=== PATIENT | female | born 1990 | race Caucasian/White ===

== ENCOUNTER 2019-08-15 01:16 | Inpatient (IN) ==
[2019-08-15] MEDS ORDERED: OXYTOCIN 30 UNITS/500 ML BAG IV PRN (01:35)
[2019-08-15] MEDS ORDERED: PENICILLIN G POTASSIUM 3 MU in DEXTROSE 5% 100 ML IV PRN (01:35)
[2019-08-15] MEDS ORDERED: LACTATED RINGER'S 1,000 ML IV PRN (01:35)
[2019-08-15] MEDS ORDERED: PENICILLIN G POTASSIUM 6 MU in DEXTROSE 5% 250 ML IV STA (01:35)
[2019-08-15] MEDS ORDERED: fentaNYL citrate 100 MCG/2 ML VIAL ONE (01:48)
[2019-08-15] MEDS ORDERED: ePHEDrine sulfate 50 MG/ML AMP ONE (01:48)
[2019-08-15] MEDS ORDERED: BUPIVACAINE 0.25% 30 ML VIAL ONE (01:48)
[2019-08-15] MEDS ORDERED: fentaNYL 2MCG/ML ROPIV 1.25MG/ML 100 ML BAG EPI ONE (01:49)
[2019-08-15 01:51] LABS: Hematocrit (blood only) 34.2 % (37-47); Hemoglobin 11.6 g/dL (12.0-16.0); Mean Corpuscular Volume 87.9 fL (80-100); Mean Platelet Volume 10.5 fL (7.4-10.4); Platelet Count 251 K/uL (130-400); RDW Coefficient of Variation 13.2 % (11.5-14.5); RDW Standard Deviation 42.1 fL (36.4-46.3); Red Blood Count 3.89 M/uL (4.2-5.4); White Blood Count 18.21 K/uL (4.8-10.8)
[2019-08-15 01:55] LABS: Mean Corpuscular Hgb Conc 33.9 g/dL (32-36)
--- NOTE | 2019-08-15 02:02 | Labor Progress Brief Note ---
Date of Service August 15, 2019 Subjective Patient breathing through contractions. Requesting epidural. PN record reviewed, GBS pos noted. Assessment & Plan (1) Carrier of group B Streptococcus: Laboring and already advanced. GBS pos, will start abx but not likely to reach adequate treatment before delivery. Epidural requested from [facility], Plts normal. Present on Admission?: Yes Physical Exam Physical Exam: In moderate distress. Abd: gravid, ctx palp strong Cvx: deferred; accept RN exam of 9/100/0 and tense bulging bag, as patient wants epidural and I'm concerned that accidentally breaking the bag will cause her to miss that opportunity. Results & Data Vital Signs (Past 12 Hours) Vital Signs Temp Pulse Resp BP 08/15/19 01:36 98.2 F 77 20 140/85 08/15/19 01:31 77 140/85
--- NOTE | 2019-08-15 02:48 | Anesthesiology Consultation ---
Date of Service August 15, 2019 38.2 Assessment & Plan (1) Encounter for pre-operative examination: Chart Review Chart Review: Patient NOT seen in Pre Admission Testing and Acceptable Risk for Labor Epidural Consults Requested none ASA ASA2 Proposed Anesthesia Anesthesia Type: CSE Risk / Benefits Reviewed With: PT / POA / Parent / Guardian, Accepts Plan and Informed Consent Obtained History Height/Weight Height: 5 ft 3 in Weight: 81.647 kg Allergies Allergy/AdvReac Type Severity Reaction Status Date / Time No Known Drug Allergies Allergy Verified 08/11/19 11:54 Medications Home Medications Medication Instructions Recorded Confirmed Last Taken albuterol sulfate HFA 90 2 puff INHALATION DIRECTED gm 06/30/19 08/15/19 Unknown mcg/actuation aerosol inhaler 21-iron fu-folic acid 1 tab PO DAILY 06/30/19 08/15/19 08/14/19 Active Medications Generic Name Dose Route Start Last Admin Trade Name Freq PRN Reason Stop Dose Admin Lactated Ringer's 1,000 mls @ 125 mls/hr 08/15/19 01:35 08/15/19 01:48 Lr IV 08/17/19 01:34 999 mls/hr .Q8H PRN Administration L&D Protocol Protocol NPO Date Last Intake of Fluids: 08/14/19 Time Last Intake of Fluids: 22:00 Date Last Intake of Solids: 08/14/19 Time Last Intake of Solids: 22:00 Past Medical History Medical History History of asthma History of ovarian cyst History of varicella vaccination Pelvic pain Exercise / Class Metabolic Activity II 4-5 Yardwork/Stairs/Walk up hill Past Family History Family History Mother Fibroid Endometriosis Grandmother (Paternal) Stroke Grandmother (Maternal) Abdominal aortic aneurysm (AAA) Past Surgical History Surgical History S/P LASIK surgery S/P wisdom tooth extraction Past Anesthesia History No Hx of Anesthesia Complications and No Family Hx of Anesthesia Complications History of PONV No Hx of PONV and No Hx of Motion Sickness Social History Smoking Status: Never smoker Hx Alcohol Use: No Hx Substance Use: No Physical Exam Vital Signs Last Vital Signs Temp 36.8 C 08/15/19 01:36 Pulse 75 08/15/19 02:39 Resp 20 08/15/19 01:36 BP 123/71 08/15/19 02:39 Pulse Ox 97 08/15/19 02:39 ENMT Mouth: no dentition abnormality Thyromental Distance: > or= 3.5 Finger Breadths Mallampati Class: II Neck normal visual inspection Respiratory normal respiratory effort Auscultation: lungs clear to auscultation bilaterally Cardiovascular Rate/Rhythm: regular rate and regular rhythm Psychiatric Orientation: alert Testing Laboratory Results 08/15/19 01:42
[2019-08-15] MEDS ORDERED: fentaNYL 2MCG/ML ROPIV 1.25MG/ML 100 ML BAG EPI PRN (02:49)
[2019-08-15] MEDS ORDERED: DiphenhydrAMINE HCL 50 MG/ML VIAL IV PRN (02:49)
[2019-08-15] MEDS ORDERED: ONDANSETRON INJ 2 MG/ML 2 ML VIAL IV PRN (02:49)
[2019-08-15] MEDS ORDERED: ePHEDrine sulfate 50 MG/ML AMP IV PRN (02:49)
[2019-08-15] MEDS ORDERED: NALBUPHINE HCL INJ 10 MG/ML AMP IV PRN (02:49)
[2019-08-15] MEDS ORDERED: NALOXONE HCL 1 MG in SODIUM CHLORIDE 0.9% 1000ML 1,000 ML IV PRN (02:49)
[2019-08-15] MEDS ORDERED: PROMETHAZINE HCL 6.25 MG in SODIUM CHLORIDE 0.9% 50 ML IV PRN (02:49)
[2019-08-15] MEDS ORDERED: NALOXONE HCL 0.4 MG/1 ML VIAL/CARP IV PRN (02:49)
--- NOTE | 2019-08-15 06:11 | Delivery Summary ---
Vaginal Delivery Summary Date of Service August 15, 2019 Vaginal Delivery Summary DIAGNOSES: 1. [place]onel intrauterine at 38w2d gestation. 2. Spontaneous onset of labor. 3. Group B Streptococcus Positive. PROCEDURE: Spontaneous vaginal delivery and repair of 3rd degree and bilateral sulcal laceration. SURGEON: Cassie Burdick MD. SUPERINTENDENT PRESSURE: None. ESTIMATED BLOOD LOSS: 400 mL. COMPLICATIONS: None. PLACENTA: Spontaneous and intact with a 3-vessel cord. DISPOSITION: Stable to labor and delivery. DESCRIPTION: The patient pushed well and brought the head to in OA position. The infant's head was allowed to deliver with contraction force and no further active pushing, with the perineum protected during this time. The shoulders delivered easily with a maternal pushing effort. There was no nuchal cord. The right shoulder was anterior. The shoulders and body delivered without any difficulty, and the was placed on the maternal abdomen. It was vigorous and moving all extremities, and making respiratory efforts. The cord was given 1 minute of delay per the patient's wishes, then doubly clamped by the MD and then cut by the FOB. The placenta delivered spontaneously and was noted to be intact and with a 3VC. The cervix, vagina and perineum were examined and were found to have a complete third degree laceration and bilateral sulcal lacerations. These were repaired using 0 vicryl suture to reapproximate the ends of the sphincter and capsule end-to-end via four [id number] sutures at each quadrant. Each sulcus was then repaired using 3-0 vicryl. Finally the perineum was repaired using 2-0 vicryl including a crown stitch to rebuild the perineum and a subcuticular skin closure. A rectal exam at the end confirmed there is no fourth degree tear and no suture palpable in the rectum. The fundus was firm and lochia minimal immediately after delivery. The tear and appropriate after care were discussed with patient and FOB immediately after delivery.
[2019-08-15] MEDS ORDERED: OXYCODONE/ACETAMINOPHEN 5mg/325mg TAB PO PRN (06:35)
[2019-08-15] MEDS ORDERED: BISACODYL 10 MG SUPP PR PRN (06:35)
[2019-08-15] MEDS ORDERED: LACTATED RINGER'S 1,000 ML IV SCH (06:35)
[2019-08-15] MEDS ORDERED: ACETAMINOPHEN 325 MG TAB PO PRN (06:35)
[2019-08-15] MEDS ORDERED: BENZOCAINE 20% AER SPR 82.5 GM CAN EXT PRN (06:35)
[2019-08-15] MEDS ORDERED: DIPHTHERIA/TETANUS/PERTUSSIS 0.5 ML SYR/VIAL IM ONE (06:35)
[2019-08-15] MEDS ORDERED: SUPERCREAM 0.870% 15 GM JAR EXT PRN (06:35)
[2019-08-15] MEDS ORDERED: HYDROCORTISONE ACETATE 25 MG SUPP PR PRN (06:35)
[2019-08-15] MEDS: IBUPROFEN 600 MG TAB PO PRN ×3 (07:58→17:16)
[2019-08-15] MEDS: PRENATAL VITAMIN 1 TAB PO SCH (07:59)
[2019-08-15] MEDS: DOCUSATE SODIUM 100 MG CAP PO SCH ×2 (07:59→20:36)
--- NOTE | 2019-08-15 08:18 | Anesthesia Procedure Note ---
Date of Service August 15, 2019 Anesthesia Post Epidural Note Vital Signs Vital Signs: Temp Pulse Resp BP Pulse Ox 36.9 C 95 H 20 119/71 99 08/15/19 06:05 08/15/19 08:05 08/15/19 06:50 08/15/19 08:05 08/15/19 05:59 Notes Mental Status: alert / awake / arousable Nausea / Vomiting: adequately controlled Pain: adequately controlled Airway Patency, RR, SpO2: stable & adequate BP & HR: stable & adequate Hydration State: stable & adequate Neuraxial Anesthesia: was administered and sensory block is resolving Anesthetic Complications: no major complications apparent Epidural: Removed without complications and With tip intact
[2019-08-16] MEDS: IBUPROFEN 600 MG TAB PO PRN ×2 (00:55→08:20)
--- NOTE | 2019-08-16 04:31 | Obstetrical Progress Note ---
Date of Service <Tonio Sommers MD - Last Filed: 08/16/19 06:25> August 16, 2019 Assessment & Plan <Tonio Sommers MD - Last Filed: 08/16/19 06:25> (1) : 08/15 PPD#1 feels well, ambulating well, voiding well will continue routine care After discharge will have 6 week follow-up (2) Carrier of group B Streptococcus: Subjective <Tonio Sommers MD - Last Filed: 08/16/19 06:25> Ms Torres is a 28 y/o female ; PPD #1 following spontaneous vaginal delivery at 38+ weeks; doing well this morning; no abdominal cramping, but some lower back pain; voiding well, passing gas but no bowel movements; tolerated meals overnight; and able to ambulate some within room; some persistent spotting with intermittent improvement this morning. Review of Systems Constitutional: denies fever; chills; sweats; headache Respiratory: denies shortness of breath, difficulty breathing Cardiac: denies chest pain; palpitations; chest pressure Breast: denies breast pain : denies dysuria Physical Exam <Tonio Sommers MD - Last Filed: 08/16/19 06:25> General: alert; oriented; no acute distress Cardiac: RRR; no m/g/r Respiratory: CTAB a/p; no wheezes/rales/rhonchi; no increased work of breathing; symmetrical chest rise; no respiratory distress Abdomen: soft; NT/ND; bowel sounds positive Uterus: uterine fundus firm; palpable 3cm below umbilicus Lower extrem: no lower extremity edema or swelling; no deep calf pain; Vasu's sign negative b/l Results & Data <Tonio Sommers MD - Last Filed: 08/16/19 06:25> Vital Signs (Past 12 Hours) Vital Signs Temp Pulse Resp BP 08/16/19 00:40 36.4 C L 86 20 130/84 08/15/19 19:42 36.7 C 82 18 130/92 Medications Administered Current Inpatient Medications Acetaminophen (Tylenol) 650 mg PO Q6H PRN PRN Reason: Pain/GRAHAM/Fever Stop: 09/14/19 06:34 Benzocaine (Dermoplast Pain Relieving [place]) 1 appln EXT PRN PRN PRN Reason: Perineal Discomfort Stop: 09/14/19 06:34 Last Admin: 08/15/19 07:59 Dose: 1 appln Documented by: Bisacodyl (Dulcolax) 5 mg PO 1999 [facility] Stop: 08/16/19 20:01 Bisacodyl (Dulcolax) 10 mg ID DAILY PRN PRN Reason: No BM on 2nd post- day Stop: 09/14/19 06:34 Cocaine HCl (Supercream 0.870%) 1 gm EXT BID PRN PRN Reason: Hemorrhoidal Inflammation Stop: 08/29/19 06:34 Docusate Sodium (Colace) 100 mg PO DAILY@08,21 [facility] Stop: 09/14/19 07:59 Last Admin: 08/15/19 20:36 Dose: 100 mg Documented by: Hydrocortisone (Anusol Hc) 25 mg ID BID PRN PRN Reason: Hemorrhoidal Inflammation Stop: 09/14/19 06:34 Oxytocin (Pitocin) 30 units in 500 mls @ 333.333 mls/hr IV .Q1H30M PRN; Protocol PRN Reason: Bleeding Control Stop: 09/14/19 01:34 Last Admin: 08/15/19 05:45 Dose: 59.94 units/hr, 999 mls/hr Documented by: Lactated Ringer's (Lr) 1,000 mls @ 125 mls/hr IV .Q8H [facility] Stop: 09/14/19 06:34 Ibuprofen (Motrin) 600 mg PO Q4H PRN PRN Reason: Pain/GRAHAM/Cramping/Fever Stop: 09/14/19 06:34 Last Admin: 08/16/19 00:55 Dose: 600 mg Documented by: Oxycodone/Acetaminophen (Percocet 5mg/325mg) 1 tab PO Q4H PRN PRN Reason: Pain not relieved by... Stop: 08/29/19 06:34 Prenat Multivit/[place]/Iron/Folic Ac ( Vitamin) 1 tab PO DAILY@08 [facility] Stop: 09/14/19 07:59 Last Admin: 08/15/19 07:59 Dose: 1 tab Documented by: <Cassie Burdick MD - Last Filed: 08/16/19 06:47> Co-Signing Physician Notes I have reviewed the resident's note and examined the patient myself, and agree with the note above. Resident Activity Tracking <Tonio Sommers MD - Last Filed: 08/16/19 06:25> Resident Involvement: Resident Care Provided Care Provided: OB Delivery
[2019-08-16 06:44] LABS: Hematocrit (blood only) 27.6 % (37-47); Hemoglobin 9.1 g/dL (12.0-16.0); Mean Corpuscular Volume 90.2 fL (80-100); Mean Platelet Volume 9.9 fL (7.4-10.4); Platelet Count 245 K/uL (130-400); RDW Coefficient of Variation 13.6 % (11.5-14.5); RDW Standard Deviation 44.5 fL (36.4-46.3); Red Blood Count 3.06 M/uL (4.2-5.4); White Blood Count 17.23 K/uL (4.8-10.8)
[2019-08-16] MEDS: DOCUSATE SODIUM 100 MG CAP PO SCH ×2 (08:20→21:24)
[2019-08-16] MEDS: PRENATAL VITAMIN 1 TAB PO SCH (08:20)
[2019-08-16] MEDS ORDERED: BISACODYL 5 MG TABEC PO SCH (20:00)
[2019-08-17 06:42] LABS: Hematocrit (blood only) 28.1 % (37-47); Hemoglobin 9.3 g/dL (12.0-16.0)
--- NOTE | 2019-08-17 07:01 | Obstetrical Progress Note ---
Date of Service <Tonio Sommers MD - Last Filed: 08/17/19 07:01> August 17, 2019 Assessment & Plan <Tonio Sommers MD - Last Filed: 08/17/19 07:01> (1) : 08/15 PPD#2 feels well, ambulating well, voiding well will continue routine care After discharge will have 6 week follow-up (2) Carrier of group B Streptococcus: Subjective <Tonio Sommers MD - Last Filed: 08/17/19 07:01> Ms Torres is a 28 y/o female ; PPD #2 following spontaneous vaginal delivery at 38+ weeks; doing well this morning; no abdominal cramping, but some lower back pain; voiding well, passing gas but no bowel movements; tolerated meals overnight; and able to ambulate some within room; some persistent spotting with intermittent improvement this morning. Review of Systems Constitutional: denies fever; chills; sweats; headache Respiratory: denies shortness of breath, difficulty breathing Cardiac: denies chest pain; palpitations; chest pressure Breast: denies breast pain : denies dysuria Physical Exam <Tonio Sommers MD - Last Filed: 08/17/19 07:01> General: alert; oriented; no acute distress Cardiac: RRR; no m/g/r Respiratory: CTAB a/p; no wheezes/rales/rhonchi; no increased work of breathing; symmetrical chest rise; no respiratory distress Abdomen: soft; NT/ND; bowel sounds positive Uterus: uterine fundus firm; palpable 3cm below umbilicus Lower extrem: no lower extremity edema or swelling; no deep calf pain; Vasu's sign negative b/l Results & Data <Tonio Sommers MD - Last Filed: 08/17/19 07:01> Vital Signs (Past 12 Hours) Vital Signs Temp Pulse Resp BP Pulse Ox 08/17/19 00:15 36.7 C 88 18 137/81 08/16/19 19:56 36.9 C 95 H 18 135/84 97 Laboratory Results 08/17/19 Range/Units 06:21 Hgb 9.3 L (12.0-16.0) g/dL Hct 28.1 L (37-47) % Medications Administered Current Inpatient Medications Acetaminophen (Tylenol) 650 mg PO Q6H PRN PRN Reason: Pain/GRAHAM/Fever Stop: 09/14/19 06:34 Benzocaine (Dermoplast Pain Relieving [place]) 1 appln EXT PRN PRN PRN Reason: Perineal Discomfort Stop: 09/14/19 06:34 Last Admin: 08/15/19 07:59 Dose: 1 appln Documented by: Bisacodyl (Dulcolax) 10 mg [place] DAILY PRN PRN Reason: No BM on 2nd post- day Stop: 09/14/19 06:34 Cocaine HCl (Supercream 0.870%) 1 gm EXT BID PRN PRN Reason: Hemorrhoidal Inflammation Stop: 08/29/19 06:34 Docusate Sodium (Colace) 100 mg PO DAILY@08,21 [facility] Stop: 09/14/19 07:59 Last Admin: 08/16/19 21:24 Dose: 100 mg Documented by: Hydrocortisone (Anusol Hc) 25 mg [place] BID PRN PRN Reason: Hemorrhoidal Inflammation Stop: 09/14/19 06:34 Oxytocin (Pitocin) 30 units in 500 mls @ 333.333 mls/hr IV .Q1H30M PRN; Protocol PRN Reason: Bleeding Control Stop: 09/14/19 01:34 Last Admin: 08/15/19 05:45 Dose: 59.94 units/hr, 999 mls/hr Documented by: Lactated Ringer's (Lr) 1,000 mls @ 125 mls/hr IV .Q8H [facility] Stop: 09/14/19 06:34 Ibuprofen (Motrin) 600 mg PO Q4H PRN PRN Reason: Pain/GRAHAM/Cramping/Fever Stop: 09/14/19 06:34 Last Admin: 08/16/19 08:20 Dose: 600 mg Documented by: Oxycodone/Acetaminophen (Percocet 5mg/325mg) 1 tab PO Q4H PRN PRN Reason: Pain not relieved by... Stop: 08/29/19 06:34 Prenat Multivit/[place]/Iron/Folic Ac ( Vitamin) 1 tab PO DAILY@08 [facility] Stop: 09/14/19 07:59 Last Admin: 08/16/19 08:20 Dose: 1 tab Documented by: <Fausto Ramsey Jr, MD, FACOG - Last Filed: 08/17/19 07:56> Co-Signing Physician Notes Resident Physician Supervision Note: I was present with Dr. Sommers during the history and exam. I discussed the case with the resident and agree with the findings and plan as documented in the note. Any exceptions or clarifications are listed here: Patient ready for D/C. Instructions given, f/u in 6 weeks for PP check Documented By: Fausto Ramsey Jr, MD, FACOG Resident Activity Tracking <Tonio Sommers MD - Last Filed: 08/17/19 07:01> Resident Involvement: Resident Care Provided Care Provided: OB Delivery
[2019-08-17] MEDS: DOCUSATE SODIUM 100 MG CAP PO SCH (08:12)
[2019-08-17] MEDS: PRENATAL VITAMIN 1 TAB PO SCH (08:12)
== END 2019-08-17 14:22 | disposition home or self-care (01) | DRG 768 ==
LOC: OPB 01:16 → 4S1 01:20 → 4S2 09:10

== ENCOUNTER 2021-05-17 12:41 | Inpatient (IN) ==
[2021-05-17] MEDS ORDERED: PENICILLIN G POTASSIUM 6 MU in DEXTROSE 5% 250 ML IV STA (13:06)
[2021-05-17] MEDS ORDERED: OXYTOCIN 30 UNITS/500 ML BAG IV PRN ×2 (13:06→15:53)
[2021-05-17] MEDS ORDERED: PENICILLIN G POTASSIUM 3 MU in DEXTROSE 5% 100 ML IV PRN (13:06)
[2021-05-17 13:22] LABS: Hematocrit (blood only) 38.1 % (37-47); Hemoglobin 12.8 g/dL (12.0-16.0); Mean Corpuscular Hgb Conc 33.6 g/dL (32-36); Mean Corpuscular Volume 89.2 fL (80-100); Mean Platelet Volume 10.3 fL (7.4-10.4); Platelet Count 299 K/uL (130-400); RDW Coefficient of Variation 13.9 % (11.5-14.5); RDW Standard Deviation 45.4 fL (36.4-46.3); Red Blood Count 4.27 M/uL (4.2-5.4); White Blood Count 15.07 K/uL (4.8-10.8)
[2021-05-17] MEDS: LACTATED RINGER'S 1,000 ML IV PRN ×2 (13:41→14:42)
--- NOTE | 2021-05-17 13:51 | History & Physical Report ---
Date of Service May 17, 2021 Assessment & Plan (1) Normal labor: Admission and Anticipated Discharge Date Admission Date: IUP at 39 weeks with advance dilation at office visit and (+) GBS status will admit, start PCNG prophylaxis. patient interested in epidural analgesia now- had significant perineal laceration with repair and would prefer analgesia because of this. antcipate vaginal . History of Present Illness Primary Care Provider: Porfirio Roberts MD Patient is a 30 yo white female EDC 05/24/21 who presents at 39 weeks for regular OB visit with complaint of pelvic pressure every 4-6 minutes. No SPROM. GBS (+) in urine. Blood type O positive. last had only mild contractions and presented to L&D at 9cm dilation. She was examined in the office and found to be 6cm dilated. She has now presented to L&D because of advanced dilation. Allergies Allergy/AdvReac Type Severity Reaction Status Date / Time No Known Drug Allergies Allergy Unknown Verified 05/17/21 12:52 Home Medications Medication Instructions Recorded Confirmed Type albuterol sulfate 90 mcg/actuation 2 puff INHALATION DIRECTED gm 06/30/19 05/17/21 History aerosol inhaler 21-iron fu-folic acid 1 tab PO DAILY 06/30/19 05/17/21 History Patient History Medical History Carrier of group B Streptococcus History of asthma History of ovarian cyst History of varicella vaccination Pelvic pain Surgical History S/P LASIK surgery S/P wisdom tooth extraction Family History Mother Fibroid Endometriosis Grandmother (Paternal) Stroke Grandmother (Maternal) Abdominal aortic aneurysm (AAA) Social History Smoking Status: Never smoker Hx Alcohol Use: No Hx Substance Use: No Preferred Language: Slovenian Beliefs That Will Affect Care: None marital status: marital status details: Goyo (31) [phone] Current Living Situation: Spouse and Family Current Living Situation Comment: lvies with spouse, daughter, 1 dog. current occupational status: employed current occupation: PA- in endo. Feels Safe at Home: Yes Safety Concerns: Feels Safe At This Time Assistive Devices: None Review of Systems All systems reviewed & are unremarkable except as noted in HPI & below Physical Exam Constitutional: WD/WN, vitals as above Respiratory: normal respiratory effort, lungs clear to auscultation Cardiovascular: RRR, no murmur, no edema Gastrointestinal (Abdomen): normal bowel sounds, soft, nontender, no hepatosplenomegaly Psychiatric: A+Ox3, euthymic affect Genitourinary: OB Exam Abdomen: + vertex, + estimated weight (7-8 pounds) and + regular contractions (4-6 minutes) Manual OB Exam: + cervical dilation 7 cm, + cervical effacement 100% and + station 0 OB Exam Monitor Tracing: + external FHT monitor used, + external uterine monitor used, + category I and + normal FHT variability Results & Data ([facility]) Vital Signs (Past 12 Hours) Vital Signs Temp Pulse Resp BP 05/17/21 12:57 75 141/70 H 05/17/21 12:52 99.0 F 18 Coding Level of Care Code None Diagnoses Normal labor O80; Z37.9
[2021-05-17] MEDS ORDERED: ePHEDrine sulfate 50 MG/ML AMP ONE (13:57)
[2021-05-17] MEDS ORDERED: BUPIVACAINE 0.25% 30 ML VIAL ONE (13:57)
[2021-05-17] MEDS ORDERED: SODIUM CHLORIDE 0.9% INJ 10 ML VIAL ONE (13:57)
[2021-05-17] MEDS ORDERED: fentaNYL 2MCG/ML ROPIVACAINE 1.25MG/ML 100 ML BAG EPI ONE (13:58)
[2021-05-17] MEDS ORDERED: fentaNYL citrate 100 MCG/2 ML VIAL ONE (13:58)
[2021-05-17] MEDS ORDERED: ONDANSETRON INJ 2 MG/ML 2 ML VIAL IV PRN (14:14)
[2021-05-17] MEDS ORDERED: ePHEDrine sulfate 50 MG/ML AMP IV PRN (14:14)
[2021-05-17] MEDS ORDERED: diphenhydrAMINE 50 MG/ML VIAL IV PRN (14:14)
[2021-05-17] MEDS ORDERED: NALOXONE HCL 1 MG in SODIUM CHLORIDE 0.9% 1000ML 1,000 ML IV PRN (14:14)
[2021-05-17] MEDS ORDERED: fentaNYL 2MCG/ML ROPIVACAINE 1.25MG/ML 100 ML BAG EPI PRN (14:14)
[2021-05-17] MEDS ORDERED: NALOXONE HCL 0.4 MG/1 ML VIAL/CARP IV PRN (14:14)
--- NOTE | 2021-05-17 14:16 | Anesthesiology Consultation ---
Date of Service May 17, 2021 Assessment & Plan (1) Encounter for pre-operative examination: Chart Review Chart Review: Patient NOT seen in Pre Admission Testing and Acceptable Risk for Labor Epidural Consults Requested none History Height/Weight Height: 5 ft 3 in Weight: 82.554 kg Allergies Allergy/AdvReac Type Severity Reaction Status Date / Time No Known Drug Allergies Allergy Unknown Verified 05/17/21 12:52 Medications Home Medications Medication Instructions Recorded Confirmed Last Taken albuterol sulfate 90 mcg/actuation 2 puff INHALATION DIRECTED gm 06/30/19 05/17/21 Unknown aerosol inhaler 21-iron fu-folic acid 1 tab PO DAILY 06/30/19 05/17/21 05/17/21 08:00 Active Medications Generic Name Dose Route Start Last Admin Trade Name Freq PRN Reason Stop Dose Admin Lactated Ringer's 1,000 mls @ 125 mls/hr 05/17/21 13:06 05/17/21 13:42 Lr IV 05/19/21 13:05 999 mls/hr .Q8H PRN Infusion L&D Protocol Protocol Past Medical History Medical History Carrier of group B Streptococcus History of asthma History of ovarian cyst History of varicella vaccination Pelvic pain Exercise / Class Metabolic Activity II 4-5 Yardwork/Stairs/Walk up hill Past Family History Family History Mother Fibroid Endometriosis Grandmother (Paternal) Stroke Grandmother (Maternal) Abdominal aortic aneurysm (AAA) Past Surgical History Surgical History S/P LASIK surgery S/P wisdom tooth extraction Past Anesthesia History No Hx of Anesthesia Complications and No Family Hx of Anesthesia Complications History of PONV No Hx of PONV and No Hx of Motion Sickness Social History Smoking Status: Never smoker Hx Alcohol Use: No Hx Substance Use: No substance use type: does not use Physical Exam Vital Signs Last Vital Signs Temp 37.2 C 05/17/21 12:52 Pulse 72 05/17/21 14:34 Resp 18 05/17/21 12:52 BP 154/97 H 05/17/21 14:34 Pulse Ox 99 05/17/21 14:31 Testing Laboratory Results 05/17/21 13:12
[2021-05-17] MEDS ORDERED: BENZOCAINE 20% AER SPR 82.5 GM CAN EXT PRN (15:53)
[2021-05-17] MEDS ORDERED: SUPERCREAM 0.870% 15 GM JAR EXT PRN (15:53)
[2021-05-17] MEDS ORDERED: oxyCODONE/ACETAMINOPHEN 5mg/325mg TAB PO PRN (15:53)
[2021-05-17] MEDS ORDERED: DIPHTHERIA/TETANUS/PERTUSSIS 0.5 ML SYR/VIAL IM ONE (15:53)
[2021-05-17] MEDS ORDERED: ACETAMINOPHEN 325 MG TAB PO PRN (15:53)
[2021-05-17] MEDS ORDERED: HYDROCORTISONE ACETATE 25 MG SUPP PR PRN (15:53)
[2021-05-17] MEDS ORDERED: ALBUTEROL HFA 8 GM INHALER INH PRN (16:00)
--- NOTE | 2021-05-17 17:47 | Anesthesia Procedure Note ---
Date of Service May 17, 2021 Anesthesia Post Epidural Note Vital Signs Vital Signs: Temp Pulse Resp BP Pulse Ox 36.6 C 85 18 126/64 96 05/17/21 14:58 05/17/21 17:40 05/17/21 16:40 05/17/21 17:40 05/17/21 15:26 Pain Intensity Bilateral Abdomen: Pain Intensity: 6 Notes Mental Status: alert / awake / arousable and participated in evaluation Patient Amnestic to Procedure: No Nausea / Vomiting: adequately controlled Pain: adequately controlled Airway Patency, RR, SpO2: stable & adequate BP & HR: stable & adequate Hydration State: stable & adequate Neuraxial Anesthesia: was administered and sensory block is resolving Anesthetic Complications: no major complications apparent and Pt Satisfied with anesthetic care Epidural: Removed without complications and With tip intact
--- NOTE | 2021-05-17 17:56 | Delivery Summary ---
Vaginal Delivery Summary Date of Service May 17, 2021 Patient is a 30-year-old 2 para 1-0-0-1 white female who presented at 39 weeks to the office for her routine OB visit. She was noted to be 6 cm dilated at and was sent to labor and delivery for further evaluation. She received effective epidural analgesia. Membranes ruptured spontaneously for clear fluid. She progressed rapidly to full dilation and pushed effectively over intact perineum for delivery of a viable male infant. After the head was delivered the rest of the infant delivered easily was placed on the mother's abdomen for further attention and drying. There was spontaneous crying and the infant was vigorous. The placenta was expressed intact with a three-vessel cord. bleeding was controlled with dilute Pitocin. A second-degree perineal laceration was repaired with 3-0 chromic in the usual fashion. Estimated blood loss was 200 cc. Mother and infant were doing well after delivery. Vaginal Delivery Summary and 2nd Degree [facility] Vaginal Delivery Charge Delivery Type Details: and 2nd Degree [facility]
[2021-05-17] MEDS: DOCUSATE SODIUM 100 MG CAP PO SCH (21:13)
[2021-05-17] MEDS: IBUPROFEN 600 MG TAB PO PRN (23:46)
[2021-05-18 06:30] LABS: Hematocrit (blood only) 38.6 % (37-47); Hemoglobin 12.8 g/dL (12.0-16.0); Mean Corpuscular Hemoglobin 29.4 pg (25-34); Mean Corpuscular Hgb Conc 33.2 g/dL (32-36); Mean Corpuscular Volume 88.5 fL (80-100); Mean Platelet Volume 10.3 fL (7.4-10.4); Platelet Count 289 K/uL (130-400); RDW Coefficient of Variation 14.1 % (11.5-14.5); RDW Standard Deviation 45.7 fL (36.4-46.3); Red Blood Count 4.36 M/uL (4.2-5.4); White Blood Count 19.32 K/uL (4.8-10.8)
--- NOTE | 2021-05-18 06:57 | Obstetrical Progress Note ---
Date of Service May 18, 2021 Assessment & Plan (1) care following vaginal delivery: S/p Day 1 - Feels well today. Eating well, voiding well, ambulating well. - Pain well-controlled with ibuprofen 600mg Q4H PRN. - Vital signs reviewed and WNL. - Hemoglobin reviewed. 12.8 --> 12.8 (today). - Blood Type: O+, antibody negative, GBS positive (only one dose PCN before delivery), Rubella Immune, COVID-19 negative - Continue routine care: encourage ambulation, monitor and control pain with Motrin PRN, continue regular OB diet, monitor lochia - Encourage breast feeding. - Will monitor for 48 hours given GBS+ with incomplete treatment - After discharge, will have 6-wk follow-up with Dr. Louis Admission and Anticipated Discharge Date Admission Date: May 17, 2021 Supervising Physician Co-Signing Physician Notes Resident Physician Supervision Note: I interviewed and examined the patient. Discussed with Dr. Snow and agree with findings and plan as documented in the note. Any exceptions or clarifications are listed here: [None] Documented By: Sabrina Power MD, FACOG Subjective HPI Zehra Torres is a 30 y/o female who is PPD 1 spontaneous vaginal delivery at 39 weeks. She reports feeling well overall this morning. No abdominal cramping and mild pain well managed on analgesics. Voiding well. Tolerating meals overnight without difficulty. Patient has been able to ambulate some. passing gas and no bowel movement. Has persistent lochia with some improvement this morning. Currently . Review of Systems Review of Systems: ROS Denies fever or chills. Denies shortness of breath or cough. Denies chest pain. Denies breast pain. Denies dysuria. Denies leg pain or leg swelling. Physical Exam Physical Exam: PE General: Alert, oriented. No acute distress. Cardiac: Regular rate and rhythm. No murmurs. Respiratory: Clear to auscultation bilaterally a/p, no wheezes/rales/rhonchi. No increased work of breathing. Symmetrical chest rise. No respiratory distress. Abdomen: Soft, nontender, nondistended. Bowel sounds present. Uterus: Uterine fundus firm, palpable 1 cm below umbilicus. Lower Extremities: No lower extremity edema or swelling. No deep calf pain. Vasu's negative bilaterally. Results & Data ([facility]) Vital Signs (Past 12 Hours) Vital Signs Temp Pulse Pulse Resp BP BP Pulse Ox 05/18/21 03:05 36.8 C 82 18 118/78 97 05/17/21 23:40 37.0 C 83 18 130/84 98 05/17/21 20:45 37.3 C 85 18 137/86 96 05/17/21 19:34 36.8 C 18 05/17/21 19:33 84 129/80 Resident Activity Tracking Resident Involvement: Resident Care Provided Care Provided: Adult Hospital Medicine
[2021-05-18] MEDS: IBUPROFEN 600 MG TAB PO PRN ×2 (07:42→18:48)
[2021-05-18] MEDS: DOCUSATE SODIUM 100 MG CAP PO SCH ×2 (07:42→19:43)
[2021-05-18] MEDS: PRENATAL VITAMIN 1 TAB PO SCH (07:42)
[2021-05-18] MEDS ORDERED: bisacodyL 5 MG TABEC PO SCH (20:00)
[2021-05-19] MEDS ORDERED: bisacodyL 10 MG SUPP PR PRN (06:00)
--- NOTE | 2021-05-19 06:07 | Obstetrical Progress Note ---
Date of Service May 19, 2021 Assessment & Plan (1) care following vaginal delivery: Zehra is a 30 y/o female who is now PPD #2 following at 39- 4/7 weeks. Her peripartum history is significant for receiving only one dose of PCN-G prior to delivery. - Feels well today. Eating well, voiding well, ambulating well. No constitutional symptoms - temperatures, VS reviewed without abnormality. - Pain well controlled with ibuprofen 600mg Q4H PRN. - Routine care -- OOB, ambulation, diet - Given only 1x dose of PCN-G, will have to stay until 48 hours for monitoring -- can d/c this afternoon - After discharge will have [address] Louis (2) Group B streptococcal infection during : Subjective Zehra is a 30 y/o female who is now PPD #2 following at 39-4/7 weeks. Reports feeling well overall this morning. Denies fever, chills, sweats. Endorses mild abdominal cramping with pain well managed on analgesics. Voiding without difficulty. Tolerating meals well and able to ambulate some. Some persistent lochia with some improvement this morning. Breast feeding. Review of Systems Denies shortness of breath, difficulty breathing, chest pain, palpitations, chest pressure. Denies breast pain. Denies dysuria. Denies headache or changes in vision. Physical Exam General: Alert, oriented. No acute distress. Cardiac: Regular rate and rhythm, no murmurs/rubs/gallops. Respiratory: Clear to auscultation bilaterally a/p, no wheezes/rales/rhonchi. No increased work of breathing. Symmetrical chest rise. No respiratory distress. Abdomen: Soft, nontender, nondistended. Bowel sounds present. Uterus: Uterine fundus firm, palpable 1-2 cm below umbilicus. Lower Extremities: No lower extremity edema or swelling. No deep calf pain. Vasu's negative bilaterally. Results & Data ([facility]) Vital Signs (Past 12 Hours) Vital Signs Temp Pulse Resp BP Pulse Ox 05/18/21 23:15 36.9 C 65 18 110/70 95 05/18/21 19:20 36.8 C 77 16 121/74 97 Resident Activity Tracking Resident Involvement: Resident Care Provided Care Provided: Adult [facility] Medicine and OB Delivery
[2021-05-19 06:59] LABS: Hematocrit (blood only) 35.9 % (37-47); Hemoglobin 11.5 g/dL (12.0-16.0)
--- NOTE | 2021-05-19 08:25 | Obstetrical Progress Note ---
Date of Service May 19, 2021 Assessment & Plan (1) care following vaginal delivery: d/c home, instructions reviewed, stable. doing well Day #:: 2 Subjective Ambulation: ambulating normally Voiding: no voiding problems Diet Tolerance:: regular diet Lochia:: Small Feeding Type:: breast feeding pain well controlled Physical Exam Constitutional WD/WN, vitals as above Respiratory normal respiratory effort, lungs clear to auscultation Cardiovascular Rate/Rhythm: regular rate and regular rhythm Gastrointestinal (Abdomen) Inspection/Auscultation: abdomen normal to inspection Percussion/Palpation: abdomen soft; abdomen nontender Fundus firm 2cm down Musculoskeletal nt calves no edema Neurologic grossly normal Psychiatric A+Ox3, euthymic affect Results & Data ([facility]) Vital Signs (Past 12 Hours) Vital Signs Temp Pulse Resp BP Pulse Ox 05/18/21 23:15 98.4 F 65 18 110/70 95
[2021-05-19] MEDS: PRENATAL VITAMIN 1 TAB PO SCH (09:04)
== END 2021-05-19 13:30 | disposition home or self-care (01) | DRG 807 ==
LOC: OPB 12:41 → 4S1 12:42 → 4S2 20:45

== ENCOUNTER 2022-11-30 18:40 | Inpatient (IN) ==
[2022-11-30] MEDS ORDERED: LACTATED RINGER'S 1,000 ML IV PRN (19:25)
[2022-11-30] MEDS ORDERED: PENICILLIN G POTASSIUM 6 MU in DEXTROSE 5% 250 ML IV STA (19:25)
[2022-11-30] MEDS ORDERED: LIDOCAINE 1% LOCAL 20 ML VIAL INFIL PRN (19:25)
[2022-11-30] MEDS ORDERED: OXYTOCIN 30 UNITS/500 ML BAG IV PRN ×2 (19:25→21:18)
--- NOTE | 2022-11-30 19:27 | History & Physical Report ---
Date of Service November 30, 2022 Assessment & Plan (1) Encounter for supervision of normal in multigravida, antepartum: Plan: Admit to L&D. EFM/toco. Labs. OK for epidural if she desires. Anticipate . History of Present Illness Chief Complaint: contractions Primary Care Provider: Porfirio Roberts MD 32yo @ 38 3/, presented with contractions. + movement, no vaginal bleeding, no leaking fluid. Short interval . Prior deliveries were quick. Allergies Allergy/AdvReac Type Severity Reaction Status Date / Time No Known Drug Allergies Allergy Unknown Verified 11/26/22 13:39 Home Medications Medication Instructions Recorded Confirmed Type albuterol sulfate 90 mcg/actuation 2 puff inhalation DIRECTED 06/30/19 11/30/22 History aerosol inhaler prenat.vits,kobe,mju-rtsi-crimz 1 tab PO DAILY 11/30/22 11/30/22 History Patient History Medical History Carrier of group B Streptococcus History of asthma History of ovarian cyst History of varicella vaccination Pelvic pain Surgical History S/P LASIK surgery S/P wisdom tooth extraction Family History Mother Fibroid Endometriosis Grandmother (Paternal) Stroke Grandmother (Maternal) Abdominal aortic aneurysm (AAA) Social History (Updated 04/15/22 @ 17:10 by Michaela Penaloza) Smoking Status: Never smoker Hx Alcohol Use: No Hx Substance Use: No Preferred Language: Telugu Communication Ability: Effective [employer] Developer Required: No Beliefs That Will Affect Care: None marital status: marital status details: Goyo (32) [phone] Current Living Situation: Spouse and Family Current Living Situation Comment: lvies with spouse, children, 1 dog. current occupational status: unemployed current occupation: homemaker. Other Information That Helps Us Care for You: No Feels Safe at Home: Yes Safety Concerns: Feels Safe At This Time Assistive Devices: None Review of Systems All systems reviewed & are unremarkable except as noted in HPI & below Physical Exam Physical Exam: FHT Cat 1 [place] Q 4 SVE 7-8/100/+1, bulging membranes Constitutional: WD/WN, vitals as above Respiratory: normal respiratory effort, lungs clear to auscultation no respiratory distress Cardiovascular: Rate/Rhythm: regular rate and regular rhythm Gastrointestinal (Abdomen): Inspection/Auscultation: abdomen normal to inspection Percussion/Palpation: abdomen soft; abdomen nontender Gravid. No s/s chorio or abruption. Skin: no rashes, warm and dry Psychiatric: A+Ox3, euthymic affect Results & Data ([facility]) Vital Signs (Past 12 Hours) Vital Signs Temp Pulse Resp BP 11/30/22 19:00 37.0 C 18 11/30/22 18:53 86 142/82 H Coding Level of Care Code None Diagnoses Encounter for supervision of normal in multigravida, antepartum Z34.80
[2022-11-30 20:32] LABS: Alanine Aminotransferase 12 U/L (7-52); Albumin Level 3.4 gm/dl (3.4-5.0); Alkaline Phosphatase 139 U/L (34-104); Anion Gap 9 (3-11); Aspartate Aminotransferase 18 U/L (13-39); BUN Creatinine Ratio 27.3 (10-20); Bilirubin,Total 0.4 mg/dl (0.2-1.0); Blood Urea Nitrogen 12 mg/dl (6-23); Calcium 8.8 mg/dl (8.5-10.1); Carbon Dioxide 23 mmol/L (21-32); Chloride 105 mmol/L (98-107); Creatinine Clr Calc Pharmacy 184.8 ml/min; Est GFR (African American) > 150.0 ml/min; Est GFR (Non-African American) 134.5 ml/min; Globulin 3.4 gm/dl (2.5-4.0); Glucose 87 mg/dl (70-99(Fasting)); Potassium 3.7 mmol/L (3.5-5.1); Sodium 137 mmol/L (136-145); Total Protein 6.8 gm/dl (6.0-8.3)
[2022-11-30 21:06] LABS: Hematocrit (blood only) 35.1 % (34.1-44.9); Hemoglobin 11.5 g/dl (12.0-16.0); Mean Corpuscular Hemoglobin 28.3 pg (25.0-34.0); Mean Corpuscular Hgb Conc 32.8 g/dL (32.0-36.0); Mean Corpuscular Volume 86.5 fL (80.0-100.0); Platelet Count 316 K/uL (130-400); Red Blood Count 4.06 M/uL (3.93-5.22); White Blood Count 14.93 K/ul (4.8-10.8)
[2022-11-30] MEDS ORDERED: ACETAMINOPHEN 325 MG TAB PO PRN (21:18)
[2022-11-30] MEDS ORDERED: HYDROCORTISONE ACETATE 25 MG SUPP PR PRN (21:18)
[2022-11-30] MEDS ORDERED: oxyCODONE/ACETAMINOPHEN 5mg/325mg TAB PO PRN (21:18)
[2022-11-30] MEDS ORDERED: ALBUTEROL HFA 8 GM INHALER INH PRN (21:18)
[2022-11-30] MEDS ORDERED: BENZOCAINE 20% AER SPR 82.5 GM CAN EXT PRN (21:18)
[2022-11-30] MEDS ORDERED: DIPHTHERIA/TETANUS/PERTUSSIS 0.5 ML SYR/VIAL IM ONE (21:18)
--- NOTE | 2022-11-30 21:21 | Delivery Summary ---
Vaginal Delivery Summary Date of Service November 30, 2022 Vaginal Delivery Summary and 2nd Degree LAC Vaginal Delivery Summary: Pre-delivery diagnoses: 32yo @ 38 3/, spontaneous labor, short interval , GBS+ Post-delivery diagnoses: same Procedure: spontaneous vaginal delivery, repair of 2nd degree perineal laceration Surgeon: Nina Lynn DO Complications: none Findings: Viable male . Apgars: 9/9. Weight pending, please see nursery records. Estimated blood loss: 300ml Description of delivery: The patient progressed to complete, labs had not yet returned by the time she was completely dilated and feeling urge to push. She h ad rec'd one dose of PCN for GBS prophylaxis. AROM performed during a contraction with amnihook, at that point baby was +2 station. She then began to push. She spontaneously vaginally delivered a viable from the cephalic presentation. The head delivered in LOP position. No nuchal. The anterior shoulder delivered, followed by the posterior shoulder, followed by the body. The baby was placed on mother's abdomen and a spontaneous cry was heard. Delayed cord clamping was employed, and the cord was doubly clamped and cut. A segment was retained for cord gases. Cord blood was obtained. The placenta was delivered spontaneously intact with a 3-vessel cord. The uterus and vagina were swept of clots and debris. IV pitocin was given. The uterus became firm. The cervix, vagina, and perineum were inspected and a left medio-lateral 2nd degree laceration was noted and repaired with 3-0 vicryl in standard fashion. Excellent hemostasis was observed. The mother and baby are recovering in stable and good condition in the room. Sponge, needle and instrument counts were correct x 2. Nina Lynn DO [facility] Vaginal Delivery Charge Vaginal Delivery Codes: 70322 global code for the antepartum, delivery, and post- Delivery Type Details: and 2nd Degree LAC
[2022-11-30] MEDS ORDERED: PENICILLIN G POTASSIUM 3 MU in DEXTROSE 5% 100 ML IV PRN (22:25)
[2022-12-01] MEDS: IBUPROFEN 600 MG TAB PO PRN ×4 (00:53→17:47)
[2022-12-01 06:47] LABS: Hematocrit (blood only) 32.8 % (34.1-44.9); Hemoglobin 10.8 g/dl (12.0-16.0)
--- NOTE | 2022-12-01 07:26 | Obstetrical Progress Note ---
Date of Service December 01, 2022 Assessment & Plan (1) Encounter for supervision of normal in multigravida, antepartum: PPD#1 doing well. . Routine care. Anticipate DC home tomorrow. Subjective Ambulation: ambulating normally Voiding: no voiding problems Diet Tolerance:: regular diet Lochia:: Moderate Review of Systems All systems reviewed & are unremarkable except as noted in HPI & below Physical Exam Constitutional WD/WN, vitals as above no acute distress Respiratory normal respiratory effort Cardiovascular Rate/Rhythm: regular rate and regular rhythm Gastrointestinal (Abdomen) Inspection/Auscultation: abdomen normal to inspection; abdomen not distended Percussion/Palpation: abdomen soft Genitourinary OB Exam Abdomen: + fundal height Fundus: + firm; not tender Results & Data ([facility]) Vital Signs (Past 12 Hours) Vital Signs Temp Pulse Pulse Resp BP BP O2 Del Method 12/01/22 03:30 36.7 C 86 16 114/72 Room Air 12/01/22 00:30 36.8 C 96 H 18 118/72 Room Air 11/30/22 23:00 36.8 C 11/30/22 23:39 18 11/30/22 23:15 18 11/30/22 22:45 18 11/30/22 22:15 18 11/30/22 22:00 18 11/30/22 21:45 18 11/30/22 21:30 18 11/30/22 21:15 18 11/30/22 23:27 75 129/77 11/30/22 23:25 95 H 118/76 11/30/22 23:15 87 119/68 11/30/22 23:05 86 112/66 11/30/22 22:55 82 119/69 11/30/22 22:45 74 119/66 11/30/22 22:35 77 123/63 11/30/22 22:25 80 132/65 11/30/22 22:15 82 132/75 11/30/22 20:21 18 11/30/22 20:21 37.0 C 18 11/30/22 22:06 77 129/77 11/30/22 21:55 164/114 H 11/30/22 21:45 89 129/79 11/30/22 21:35 69 131/79 11/30/22 21:25 83 132/81 11/30/22 21:15 82 133/85
[2022-12-01] MEDS: PRENATAL VITAMIN 1 TAB PO SCH (07:49)
[2022-12-01] MEDS: DOCUSATE SODIUM 100 MG CAP PO SCH ×2 (07:49→21:15)
[2022-12-01] MEDS ORDERED: bisacodyL 5 MG TABEC PO SCH (20:00)
[2022-12-02] MEDS ORDERED: bisacodyL 10 MG SUPP PR PRN
--- NOTE | 2022-12-02 07:22 | Obstetrical Progress Note ---
Date of Service December 02, 2022 Assessment & Plan (1) Encounter for supervision of normal in multigravida, antepartum: PPD#2 doing well. Desires DC home. Instructions reviewed. Subjective Ambulation: ambulating normally Voiding: no voiding problems Diet Tolerance:: regular diet Lochia:: Moderate Review of Systems All systems reviewed & are unremarkable except as noted in HPI & below Physical Exam Constitutional WD/WN, vitals as above no acute distress Respiratory normal respiratory effort Cardiovascular Rate/Rhythm: regular rate and regular rhythm Gastrointestinal (Abdomen) Inspection/Auscultation: abdomen normal to inspection; abdomen not distended Percussion/Palpation: abdomen soft Genitourinary OB Exam Abdomen: + fundal height Fundus: + firm; not tender Results & Data ([facility]) Vital Signs (Past 12 Hours) Vital Signs Temp Pulse Resp BP Pulse Ox O2 Del Method 12/01/22 23:29 36.7 C 75 18 114/73 12/01/22 20:00 36.5 C 73 16 119/80 98 Room Air
[2022-12-02] MEDS: DOCUSATE SODIUM 100 MG CAP PO SCH ×2 (09:47→09:50)
[2022-12-02] MEDS: PRENATAL VITAMIN 1 TAB PO SCH (09:47)
== END 2022-12-02 14:45 | disposition home or self-care (01) | DRG 807 ==
LOC: OPB 18:40 → 4S1 18:41 → 4E2 12-01 00:22